=== PATIENT | male | born 1985 | race Two or more races ===

== ENCOUNTER 2019-09-10 05:30 | Emergency (ER) | payer MEDICAID ==
[~2019-09-10] VITALS: Ht 172.7 cm; Wt 65.8 kg
[2019-09-10 05:55] VITALS: BP 125/84
--- NOTE | 2019-09-10 05:55 | NUR ---
ED Nurse Note: Pt is AAOX4, VSS, No acute distress. Pt c/o pain in his left big toe since a few weeks. Pt stated he stepped on a nail, did not get the tetanus shot after stepping on nail but stated he had his tetnus shot 7-8 years ago. Bottom of LT big toe is callous, no drianage, no puss. Pt state 10/10 throbbing pain.
--- NOTE | 2019-09-10 06:00 | NUR ---
ED Nurse Note: with pt.
--- NOTE | 2019-09-10 06:16 | Emergency Room Report ---
History of Present Illness General Chief Complaint: Skin Rash/Abscess Source: Patient Present Illness [facility] This is a 34-year-old male with no past medical history. He presents with chief complaint of swelling to his left great toe. He said he stepped on a nail 2 weeks ago. He said he was wearing socks. About a few days ago, he started to notice some swelling and pain. Swelling is mostly to the pad of the left great toe. Pain is 8 out of 10. Worse with palpation and walking. No fever chills but no nausea no vomiting. Tetanus was within 7 years. He does not want another tetanus shot. Allergies: Coded Allergies: No Known Allergies (Unverified , 09/10/19) Patient History Past Medical History: see triage record, old chart reviewed Past Surgical History: none Pertinent Family History: none Social History: Denies: smoking Immunizations: other Reviewed Nursing Documentation: PMH: Agreed; PSxH: Agreed Review of Systems Eye: Denies: eye pain, blurred vision ENT: Denies: ear pain, nose congestion, throat swelling Respiratory: Denies: cough, shortness of breath Cardiovascular: Denies: chest pain, palpitations Gastrointestinal: Denies: abdominal pain, diarrhea, nausea, vomiting Musculoskeletal: Denies: back pain, joint pain Skin: Denies: rash Neurological: Denies: headache, numbness Endocrine: Denies: increased thirst, increased urine Hematologic/Lymphatic: Denies: easy bruising All Other Systems: negative except mentioned in HPI Physical Exam Vital Signs Date Time Temp Pulse Resp B/P (MAP) Pulse Ox O2 Delivery O2 Flow Rate FiO2 09/10/19 05:47 98.4 98 16 125/84 (98) 97 Room Air Vitals normal Sp02 EP Interpretation: reviewed, normal General Appearance: well appearing, no apparent distress, alert Head: normocephalic, atraumatic Eyes: bilateral eye PERRL, bilateral eye EOMI ENT: hearing grossly normal, normal pharynx Neck: full range of motion, supple, no meningismus Respiratory: chest non-tender, lungs clear, normal breath sounds Cardiovascular #1: regular rate, rhythm, no murmur Gastrointestinal: normal bowel sounds, non tender, no mass, no organomegaly, no bruit, non-distended Musculoskeletal: back normal, gait/station normal, normal range of motion, other - Left Great toe: There is an area of abscess about 1 cm. There is generalized swelling and tenderness. No hematoma. Psychiatric: mood/affect normal Procedures Incision and Drainage Incision and Drainage : Consent: Verbal Site: Left great toe Blade Size: 11 I & D Procedure: betadine prep Wound Location: lower extremity Patient Tolerated: Well Complications: None Progress I did a digital block. And then I made a small elliptical incision over the necrotic tissue area. There was small amount of pus expressed. Wound explored. There is no deep infection. Wound dressed and patient will be discharged. Medical Decision Making Diagnostic Impression: Primary Impression: Abscess of toe of left foot ER Course Patient presents with an abscess to the pad of his great toe. No foreign body seen. Small amount of pus expressed. Will discharge home. Last Vital Signs Date Time Temp Pulse Resp B/P (MAP) Pulse Ox O2 Delivery O2 Flow Rate FiO2 09/10/19 05:47 98.4 98 16 125/84 (98) 97 Room Air Status: improved Disposition: HOME, SELF-CARE Condition: Stable Scripts Ibuprofen* (MOTRIN*) 600 Mg Tablet 600 MG ORAL THREE TIMES A DAY, #30 TAB 0 Refills Prov: Wilfredo Moreno MD 09/10/19 Hydrocodone/Acetaminophen 5-325* (HYDROCODONE/ACETAMINOPHEN 5-325*) 1 Each Tablet 1 TAB ORAL Q6H PRN for For Pain, #15 TAB 0 Refills Prov: Wilfredo Moreno MD 09/10/19 Clindamycin Hcl (CLINDAMYCIN HCL) 300 Mg Capsule 300 MG ORAL THREE TIMES A DAY, #21 CAP Prov: Wilfredo Moreno MD 09/10/19 Patient Instructions: Abscess Additional Instructions: Follow-up in 2 days for recheck. Return if symptoms worsen. Wilfredo Moreno MD Sep 10, 2019 06:16
[2019-09-10] MEDS ORDERED: HYDROcodone/Acetamin 5/325 tab ORAL ONE (06:30)
[2019-09-10] MEDS ORDERED: Clindamycin 150mg cap ORAL ONE (06:30)
[2019-09-10] MEDS ORDERED: IBUPROFEN600 MG ORAL (06:32)
[2019-09-10] MEDS ORDERED: HYDROCODON-ACE1 EA15 ORAL (06:32)
[2019-09-10] MEDS ORDERED: CLINDAMYCIN HC300 MG ORAL (06:32)
[2019-09-10 06:45] VITALS: BP 115/82
[2019-09-10] MEDS ORDERED: Neosporin Oint Ud Pkt TOPIC ONE (06:45)
--- NOTE | 2019-09-10 06:45 | NUR ---
ER DISCHARGE NOTE: Patient is cleared to be discharged per ERMD, pt is aox4, on room air, with stable vital signs. pt was given dc and prescription instructions, pt was able to verbalize understanding, pt id band and big toe was bandaged. pt is able to ambulate with steady gait. pt took all belongings. Pt states pain is 0/10
== END 2019-09-10 06:45 | disposition home or self-care (01) ==
LOC: EMR 06:14
DX: L02.612 Cutaneous abscess of left foot (principal)
CPT/HCPCS: 10060; Z7502; 99282